=== PATIENT | female | born 1990 | race Caucasian/White ===

== ENCOUNTER → 2021-12-02 | Outpatient (CLI) | payer OTHER ==
[2021-12-02 18:54] LABS: Source, Urine Clean Catch
[2021-12-02 20:41] LABS: Bacteria Rare /hpf; Red Blood Cells, Urine 0-2 /hpf (0-2); Squamous Epithelial Cells Rare /hpf (Few); White Blood Cells, Urine 0-2 /hpf (0-5)
[2021-12-02 20:49] LABS: U Amphetamine Screen Not Detected; U Barbituate Screen Not Detected; U Benzodiazapine Screen Not Detected; U Buprenorphine Screen Not Detected; U Cannabinoids Screen Not Detected; U Cocaine Screen Not Detected; U Methadone Screen Not Detected; U Methamphetamine Screen Not Detected; U Opiates Screen Not Detected; U Oxycodone Screen Not Detected; U Phencyclidine Screen Not Detected; U Propoxyphene Screen Not Detected
== END | disposition home or self-care (01) ==
LOC: LAB SHORT 11:51
PROVIDERS: Obstetrics & Gynecology
DX: Z34.01 Encounter for supervision of normal first pregnancy, first trimester (principal)
CPT/HCPCS: 81015; 87086

== ENCOUNTER → 2021-12-15 | Outpatient (CLI) | payer OTHER ==
[2021-12-16 15:11] LABS: HPV 16 Negative (Negative); HPV 18 Negative (Negative); HPV OTHER HR TYPES Negative (Negative)
== END | disposition home or self-care (01) ==
LOC: LAB SHORT 13:36
PROVIDERS: Obstetrics & Gynecology
DX: Z34.81 Encounter for supervision of other normal pregnancy, first trimester (principal)
CPT/HCPCS: 87624; G0123

== ENCOUNTER → 2022-05-26 | Outpatient (CLI) | payer OTHER ==
[~2022-05-26] MED LIST: IBUP800 PO; PRENATAL TABLE1 EAC2 PO
== END | disposition home or self-care (01) ==
LOC: LAB SHORT 11:15 → LAB 11:15
DX: O09.93 Supervision of high risk pregnancy, unspecified, third trimester (principal)
CPT/HCPCS: 87081; 87150

== ENCOUNTER 2022-06-21 02:52 | Inpatient (IN) | payer OTHER ==
[~2022-06-21] VITALS: Ht 167.6 cm; Wt 90.9 kg
[2022-06-21 13:14] LABS: BASOPHILS ABSOLUTE AUTO 0.03 K/mm3 (0.00-0.23); BASOPHILS PERCENT AUTO 0 % (0-2); EOSINOPHILS ABSOLUTE AUTO 0.01 K/mm3 (0.00-0.68); EOSINOPHILS PERCENT AUTO 0 % (0-6); Hematocrit 38.9 % (33.0-51.0); Hemoglobin 13.8 g/dL (11.5-16.0); IMMATURE GRAN ABSOLUTE AUTO 0.09 K/mm3 (0.00-0.10); IMMATURE GRAN PERCENT AUTO 1 % (0-1); LYMPHOCYTES ABSOLUTE AUTO 1.73 K/mm3 (0.84-5.20); LYMPHOCYTES PERCENT AUTO 10 % (21-46); MONOCYTES ABSOLUTE AUTO 1.04 K/mm3 (0.16-1.47); MONOCYTES PERCENT AUTO 6 % (4-13); Mean Corpuscular HGB 31.5 pg (26.0-34.0); Mean Corpuscular HGB Conc 35.5 g/dL (31.5-36.5); Mean Corpuscular Volume 89 fL (80-100); Mean Platelet Volume 10.6 fL (9.1-12.4); NEUTROPHILS ABSOLUTE AUTO 14.69 K/mm3 (1.96-9.15); NEUTROPHILS PERCENT AUTO 84 % (41-73); Platelet Count 209 K/mm3 (150-400); RDW Coefficient Variation 13.2 % (11.7-14.2); Red Blood Cell Count 4.38 M/mm3 (3.80-5.20); White Blood Cell Count 17.59 K/mm3 (4.00-11.30)
--- NOTE | 2022-06-22 18:05 | NUR ---
DISCHARGE INSTRUCTIONS REVIEWED AND SIGNED. PT TO BE DISCHARGED TO [facility].
== END 2022-06-22 18:16 | disposition home or self-care (01) | DRG 807 ==
LOC: OBS 02:52 → BC 02:52 → OBS 12:46 → BC 12:47
PROVIDERS: ADMIT Obstetrics & Gynecology
PROC: 10E0XZZ Delivery of Products of Conception, External Approach (ICD-10-PCS; principal; 2022-06-21)
PROC: 10907ZC Drainage of Amniotic Fluid, Therapeutic from Products of Conception, Via Natural or Artificial Opening (ICD-10-PCS; 2022-06-21)
PROC: 3E0R3BZ Introduction of Anesthetic Agent into Spinal Canal, Percutaneous Approach (ICD-10-PCS; 2022-06-21)
PROC: 00HU33Z Insertion of Infusion Device into Spinal Canal, Percutaneous Approach (ICD-10-PCS; 2022-06-21)
PROC: 0UQMXZZ Repair Vulva, External Approach (ICD-10-PCS; 2022-06-21)
DX: O98.12 Syphilis complicating childbirth (principal); Z37.0 Single live birth; Z87.891 Personal history of nicotine dependence; Z88.8 Allergy status to other drugs, medicaments and biological substances; Z88.5 Allergy status to narcotic agent; Z91.013 Allergy to seafood; O70.0 First degree perineal laceration during delivery; Z3A.39 39 weeks gestation of pregnancy; A53.0 Latent syphilis, unspecified as early or late
CPT/HCPCS: 36415; 51702; 59025; 81003; 85025; 86850; 86900; 86901; 88307; A9270; J1885; J2001; J2270; J2550; J3010; J7120

== ENCOUNTER 2022-07-11 00:09 | Day surgery (SDC) | payer OTHER ==
[2022-07-11] MEDS ORDERED: IBUP800 PO (10:57)
[2022-07-11] MEDS ORDERED: PRENATAL TABLE1 EAC2 PO (10:58)
== END 2022-07-11 09:47 | disposition home or self-care (01) ==
LOC: ATC 00:09
DX: O98.13 Syphilis complicating the puerperium (principal)
CPT/HCPCS: 96372; J0561

== ENCOUNTER 2022-07-18 01:11 | Day surgery (SDC) | payer OTHER | END 2022-07-18 15:03 | disposition home or self-care (01) | LOC: ATC 01:11 | DX: O98.119 Syphilis complicating pregnancy, unspecified trimester (principal); Z3A.00 Weeks of gestation of pregnancy not specified | CPT/HCPCS: 96372; J0561 ==

== ENCOUNTER 2022-08-26 02:11 | Day surgery (SDC) | payer OTHER | END 2022-08-26 14:28 | disposition home or self-care (01) | LOC: ATC 02:11 | DX: A53.9 Syphilis, unspecified (principal) | CPT/HCPCS: J0561 ==

== ENCOUNTER 2022-09-02 03:27 | Day surgery (SDC) | payer OTHER | END 2022-09-02 15:08 | disposition home or self-care (01) | LOC: ATC 03:27 | DX: A53.9 Syphilis, unspecified (principal) | CPT/HCPCS: J0561 ==

== ENCOUNTER 2022-09-09 00:24 | Day surgery (SDC) | payer OTHER | END 2022-09-09 14:47 | disposition home or self-care (01) | LOC: ATC 00:24 | DX: A53.9 Syphilis, unspecified (principal); F41.9 Anxiety disorder, unspecified; Z88.5 Allergy status to narcotic agent; Z88.8 Allergy status to other drugs, medicaments and biological substances; Z87.891 Personal history of nicotine dependence | CPT/HCPCS: J0561 ==

== ENCOUNTER → 2022-10-19 | Outpatient (CLI) | payer OTHER ==
[2022-10-21 09:14] LABS: RPR Reactive (Nonreactive)
[2022-10-21 09:15] LABS: RPR TITER 1:32
== END | disposition home or self-care (01) ==
LOC: LAB SHORT 14:49
PROVIDERS: Family Medicine
DX: A53.9 Syphilis, unspecified (principal)
CPT/HCPCS: 36415; 86592; 86593

== ENCOUNTER → 2025-01-03 | Outpatient (CLI) | payer OTHER ==
[2025-01-03 19:45] LABS: Candida glabrata-krusei, PCR NOT DETECTED (NOT DETECT)
[2025-01-03 19:52] LABS: Bacterial Vaginosis PCR Positive (NEGATIVE); Candida Group, PCR DETECTED (NOT DETECT)
== END ==
LOC: LAB 18:11 → LAB SHORT 18:11
PROVIDERS: Advanced Practice Midwife
DX: N76.0 Acute vaginitis (principal)
CPT/HCPCS: 81515

== ENCOUNTER → 2025-01-06 | Outpatient (CLI) | payer OTHER | END | disposition home or self-care (01) | LOC: LAB SHORT 10:30 → PLD 10:30 | DX: N75.0 Cyst of Bartholin's gland (principal); N90.7 Vulvar cyst | CPT/HCPCS: 88304 ==

== ENCOUNTER 2025-04-24 10:10 | Inpatient (IN) | payer OTHER ==
[2025-04-24] VITALS (27 sets, daily range): BP systolic 102–174; BP diastolic 61–102
[~2025-04-24] VITALS: Ht 165.1 cm; Wt 88.6 kg
[2025-04-24] MEDS ORDERED: ePHEDrine Sulfate 50 MG/ML 1ML Injection XX PRN (10:30)
[2025-04-24] MEDS ORDERED: Misoprostol 200 MCG Tab BC PRN (10:30)
[2025-04-24] MEDS ORDERED: Methylergonovine Maleate 0.2MG / ML 1ML Amp IM PRN ×2 (10:30→20:45)
[2025-04-24] MEDS ORDERED: Oxytocin 10 Unit / ML Vial IM PRN (10:30)
[2025-04-24] MEDS ORDERED: Lactated Ringer's 1,000 ML IV PRN (10:30)
[2025-04-24] MEDS ORDERED: Tranexamic Acid 100 ML IV SCH (10:30)
[2025-04-24] MEDS ORDERED: Calcium Carbonate 500 MG Tab Chew PO PRN (10:30)
[2025-04-24] MEDS ORDERED: OXYTOCIN/RINGER'S LACTATE 500 ML IV PRN (10:30)
[2025-04-24] MEDS ORDERED: FentaNYL 2mcg/ml-Bup 0.1% Epd 250 ML EPI PRN (10:30)
[2025-04-24] MEDS ORDERED: Ondansetron HCl 2 MG / ML 2ML Vial IV PRN (10:30)
[2025-04-24] MEDS ORDERED: Carboprost Tromethamine 250 MCG/ML 1ML Amp IM PRN ×2 (10:30→20:45)
[2025-04-24] MEDS ORDERED: OXYTOCIN/RINGER'S LACTATE 500 ML IV SCH ×2 (10:30→20:45)
[2025-04-24] MEDS ORDERED: Misoprostol 200 MCG Tab PR PRN ×2 (10:30→20:45)
[2025-04-24] MEDS ORDERED: Acetaminophen 500 MG Tab PO PRN (10:30)
[2025-04-24] MEDS ORDERED: Lactated Ringer's 1,000 ML IV SCH ×4 (10:30→20:40)
[2025-04-24] MEDS ORDERED: Penicillin G Potassium 5,000,000 UNITS in NS 250 ML IV ONE (10:35)
[2025-04-24 11:17] LABS: BASOPHILS ABSOLUTE AUTO 0.02 K/mm3 (0.00-0.23); BASOPHILS PERCENT AUTO 0 % (0-2); EOSINOPHILS ABSOLUTE AUTO 0.05 K/mm3 (0.00-0.68); EOSINOPHILS PERCENT AUTO 1 % (0-6); Hematocrit 35.6 % (33.0-51.0); Hemoglobin 12.6 g/dL (11.5-16.0); IMMATURE GRAN ABSOLUTE AUTO 0.08 K/mm3 (0.00-0.10); IMMATURE GRAN PERCENT AUTO 1 % (0-1); LYMPHOCYTES ABSOLUTE AUTO 1.52 K/mm3 (0.84-5.20); LYMPHOCYTES PERCENT AUTO 18 % (21-46); MONOCYTES ABSOLUTE AUTO 0.47 K/mm3 (0.16-1.47); MONOCYTES PERCENT AUTO 6 % (4-13); Mean Corpuscular HGB 31.6 pg (26.0-34.0); Mean Corpuscular HGB Conc 35.4 g/dL (31.5-36.5); Mean Corpuscular Volume 89 fL (80-100); Mean Platelet Volume 11.2 fL (9.1-12.4); NEUTROPHILS ABSOLUTE AUTO 6.35 K/mm3 (1.96-9.15); NEUTROPHILS PERCENT AUTO 75 % (41-73); Platelet Count 194 K/mm3 (150-400); RDW Coefficient Variation 13.1 % (11.7-14.2); RDW Standard Deviation 42.5 fL (35.1-46.3); Red Blood Cell Count 3.99 M/mm3 (3.80-5.20); White Blood Cell Count 8.49 K/mm3 (4.00-11.30)
[2025-04-24] MEDS ORDERED: Penicillin G Potassium 2,500,000 UNITS in Dextrose 5% 100 ML IV SCH (14:30)
[2025-04-24] MEDS ORDERED: Witch Hazel/Glycerin PADS TOP PRN (20:40)
[2025-04-24] MEDS ORDERED: Docusate Sodium 100 MG Cap PO PRN (20:40)
[2025-04-24] MEDS ORDERED: Lanolin Cream TOP PRN (20:45)
[2025-04-24] MEDS ORDERED: Benzocaine Topical Anesthetic Spray 60GM TOP PRN (20:45)
[2025-04-24] MEDS ORDERED: Ketorolac Tromethamine 30mg Vial IV SCH (21:00)
[2025-04-24] MEDS ORDERED: Ketorolac Tromethamine 30mg Vial IV PRN (22:40)
[2025-04-25 03:57] VITALS: BP 111/64
[2025-04-25 06:45] LABS: BASOPHILS ABSOLUTE AUTO 0.03 K/mm3 (0.00-0.23); BASOPHILS PERCENT AUTO 0 % (0-2); EOSINOPHILS ABSOLUTE AUTO 0.08 K/mm3 (0.00-0.68); EOSINOPHILS PERCENT AUTO 1 % (0-6); Hematocrit 31.4 % (33.0-51.0); Hemoglobin 10.9 g/dL (11.5-16.0); IMMATURE GRAN ABSOLUTE AUTO 0.04 K/mm3 (0.00-0.10); IMMATURE GRAN PERCENT AUTO 0 % (0-1); LYMPHOCYTES ABSOLUTE AUTO 1.77 K/mm3 (0.84-5.20); LYMPHOCYTES PERCENT AUTO 17 % (21-46); MONOCYTES ABSOLUTE AUTO 0.72 K/mm3 (0.16-1.47); MONOCYTES PERCENT AUTO 7 % (4-13); Mean Corpuscular HGB 31.1 pg (26.0-34.0); Mean Corpuscular HGB Conc 34.7 g/dL (31.5-36.5); Mean Corpuscular Volume 90 fL (80-100); Mean Platelet Volume 11.4 fL (9.1-12.4); NEUTROPHILS ABSOLUTE AUTO 7.53 K/mm3 (1.96-9.15); NEUTROPHILS PERCENT AUTO 74 % (41-73); Platelet Count 157 K/mm3 (150-400); RDW Coefficient Variation 13.1 % (11.7-14.2); RDW Standard Deviation 42.8 fL (35.1-46.3); Red Blood Cell Count 3.51 M/mm3 (3.80-5.20); White Blood Cell Count 10.17 K/mm3 (4.00-11.30)
[2025-04-25 08:16] VITALS: BP 117/77
[2025-04-25] MEDS ORDERED: Prenatal Vit/FE Fumarate/FA 1 Tab PO SCH (09:00)
[2025-04-25 12:46] VITALS: BP 117/65
[2025-04-25 15:32] LABS: RPR SCREEN with Reflex Reactive (Nonreactive)
[2025-04-25 15:33] LABS: RPR TITER 1:32
[2025-04-25 16:43] VITALS: BP 115/76
[2025-04-25 19:42] VITALS: BP 124/75
[2025-04-25 22:20] VITALS: BP 133/84
--- NOTE | 2025-04-25 22:59 | NUR ---
2227: THIS RN WALKED PT OUT TO CAR, PT HAD NO FURTHER QUESTIONS OR CONCERNS.
[2025-04-28 18:10] LABS: T.PALLIDUM AB,IGG (FTA-ABS) Reactive (Non Reactive)
== END 2025-04-25 22:30 | disposition home or self-care (01) | DRG 807 ==
LOC: BC 10:10 → OBS 10:10 → BC 10:27
PROVIDERS: ADMIT Obstetrics & Gynecology
PROC: 10E0XZZ Delivery of Products of Conception, External Approach (ICD-10-PCS; principal; 2025-04-24)
PROC: 0HQ9XZZ Repair Perineum Skin, External Approach (ICD-10-PCS; 2025-04-24)
PROC: 10907ZC Drainage of Amniotic Fluid, Therapeutic from Products of Conception, Via Natural or Artificial Opening (ICD-10-PCS; 2025-04-24)
PROC: 3E033VJ Introduction of Other Hormone into Peripheral Vein, Percutaneous Approach (ICD-10-PCS; 2025-04-24)
PROC: 4A1HXCZ Monitoring of Products of Conception, Cardiac Rate, External Approach (ICD-10-PCS; 2025-04-24)
DX: O99.824 Streptococcus B carrier state complicating childbirth (principal); Z37.0 Single live birth; Z3A.39 39 weeks gestation of pregnancy; O99.344 Other mental disorders complicating childbirth; F41.9 Anxiety disorder, unspecified; Z86.19 Personal history of other infectious and parasitic diseases; Z87.891 Personal history of nicotine dependence; Z88.5 Allergy status to narcotic agent; O77.0 Labor and delivery complicated by meconium in amniotic fluid; O70.0 First degree perineal laceration during delivery
CPT/HCPCS: 36415; 51702; 85025; 86592; 86593; 86780; 86850; 86900; 86901; A9270; J1885; J2405; J2540; J2590; J7050; J7120